=== PATIENT | female | born 1980 | race Caucasian/White ===

== ENCOUNTER 2019-03-15 17:03 | Emergency (ER) | payer BC, OTHER ==
--- NOTE | 2019-03-15 18:19 | ED ---
Head Injury - HPI Summary HPI Summary: 38-year-old female presents with head injury couple days ago. States she's been having right-sided headaches. States they're very severe. She states she almost passed out with injury. She struck the posterior aspect of her head. Denies any neck pain. She's been having blurry vision in the right eye. She states she has not been having difficulties concentrating. She was seen and told to come to the ER for further evaluation. - History Of Current Complaint Chief Complaint: EDHeadInjury Stated Complaint: HEAD INJURY PER PT Time Seen by Provider: 03/15/19 17:21 Pain Intensity: 4 - Allergies/Home Medications Allergies/Adverse Reactions: Allergies Allergy/AdvReac Type Severity Reaction Status Date / Time Adhesive Tape Allergy Unknown Verified 03/15/19 17:15 Reaction Details glucosamine Allergy Rash Verified 03/15/19 17:16 beer Allergy Anaphylatic Uncoded 03/15/19 17:16 Shock Home Medications: Home Medications Ibuprofen 600 mg PO Q6HR PRN 03/15/19 [History Confirmed 03/15/19] PMH/Surg Hx/FS Hx/Imm Hx Endocrine/Hematology History: Denies: Hx Diabetes, Hx Systemic Lupus Erythematosus Cardiovascular History: Denies: Hx Congestive Heart Failure, Hx Hypertension, Hx Pacemaker/ICD History: Denies: Hx Dialysis, Hx Renal Disease Musculoskeletal History: Denies: Hx Rheumatoid Arthritis Sensory History: Denies: Hx Hearing Aid Psychiatric History: Denies: Hx Panic Disorder - Cancer History Hx Chemotherapy: No - Surgical History Surgery Procedure, Year, and Place: cholecystectomy,appendectomy, LEEP procedure ,bunionectomy bilateral feet with screw in both big toes Infectious Disease History: No Infectious Disease History: Denies: Traveled Outside the [place] in Last 30 Days - Family History Known Family History: Positive: Non-Contributory - Social History Alcohol Use: Occasionally Substance Use Type: Reports: None Smoking Status (MU): Never Smoked Tobacco Review of Systems Negative: Fever Positive: Blurred Vision Negative: Chest Pain Negative: Shortness Of Breath Positive: Headache All Other Systems Reviewed And Are Negative: Yes Physical Exam Triage Information Reviewed: Yes Vital Signs On Initial Exam: Initial Vitals Temp Pulse Resp BP Pulse Ox 98.1 F 72 16 134/106 100 03/15/19 17:08 03/15/19 17:08 03/15/19 17:08 03/15/19 17:08 03/15/19 17:08 Vital Signs Reviewed: Yes Appearance: Positive: Well-Appearing Skin: Positive: Warm, Dry Head/Face: Positive: Normal Head/Face Inspection Eyes: Positive: Normal, EOMI, MAR, Conjunctiva Clear ENT: Positive: Normal ENT inspection, Pharyngeal erythema Neck: Positive: Other: - nontender neck, full ROM neck Respiratory/Lung Sounds: Positive: Clear to Auscultation, Breath Sounds Present Cardiovascular: Positive: Normal, RRR Musculoskeletal: Positive: Normal Neurological: Positive: Sensory/Motor Intact, Alert, Oriented to Person Place, Time, CN Intact II-III, Finger to Nose Psychiatric: Positive: Normal - Go Coma Scale Best Eye Response: 4 - Spontaneous Best Motor Response: 6 - Obeys Commands Best Verbal Response: 5 - Oriented Coma Scale Total: 15 Procedures - Sedation Patient Received Moderate/Deep Sedation with Procedure: No Diagnostics - Vital Signs Vital Signs Temp Pulse Resp BP Pulse Ox 03/15/19 17:08 98.1 F 72 16 134/106 100 - Laboratory Lab Statement: Any lab studies that have been ordered have been reviewed, and results considered in the medical decision making process. - CT brain CT Interpretation Completed By: Radiologist Summary of CT Findings: IMPRESSION: No acute intracranial pathology. Head Injury Course/Dx Course Of Treatment: 38-year-old female presents with head injury couple days ago. States she's been having right-sided headaches. States they're very severe. She states she almost passed out with injury. She struck the posterior aspect of her head. Denies any neck pain. She's been having blurry vision in the right eye. She states she has not been having difficulties concentrating. She was seen and told to come to the ER for further evaluation. On exam abnormality with visual angel on the right. Patient visual acuity reduced on the right. Otherwise cranial nerves are intact. with abnormal neuro exam and severe headache got CT. CT brain is normal. Gave concussion precautions. told follow up with primary. Patient understands agrees the plan. - Diagnoses Differential Diagnosis/HQI/PQRI: Concussion Without LOC, Contusion, Intracranial Bleed Provider Diagnoses: Head injury Discharge ED - Sign-Out/Discharge Documenting (check all that apply): Patient Departure - Discharge Plan Condition: Good Disposition: HOME Patient Education Materials: Concussion (ED) Forms: *Work Release Referrals: Roddy Merrill MD [Primary Care Provider] - Additional Instructions: Place ice on area as needed Take Tylenol or ibuprofen for headache every 6 hours Modify activities as tolerated Follow up with primary within 5 days Return to ED if develop any new or worsening symptoms - Billing Disposition and Condition Condition: GOOD Disposition: Home
[2019-03-15 18:41] VITALS: BP 123/84
== END 2019-03-15 18:40 | disposition home or self-care (01) ==
LOC: ED 17:03
DX: S09.90XA Unspecified injury of head, initial encounter (principal); X58.XXXA Exposure to other specified factors, initial encounter; Y92.9 Unspecified place or not applicable; Z90.49 Acquired absence of other specified parts of digestive tract
CPT/HCPCS: 70450; 99282

== ENCOUNTER 2019-06-15 16:13 | Emergency (ER) | payer SELFPAY ==
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
[2019-06-15 18:07] VITALS: BP 122/77
== END 2019-06-15 18:07 | disposition home or self-care (01) ==
LOC: ED 16:13
DX: M62.838 Other muscle spasm (principal); M25.562 Pain in left knee; R51 Headache; V49.40XA Driver injured in collision with unspecified motor vehicles in traffic accident, initial encounter; Y92.410 Unspecified street and highway as the place of occurrence of the external cause; Z87.891 Personal history of nicotine dependence; Z90.49 Acquired absence of other specified parts of digestive tract; Z90.89 Acquired absence of other organs; Z88.8 Allergy status to other drugs, medicaments and biological substances
CPT/HCPCS: 70450; 99281

== ENCOUNTER 2020-01-28 16:04 | Inpatient (IN) ==
[2020-01-28] MEDS ORDERED: NS 0.9% 1000 ml BAG 1,000 ML IV ONE (16:12)
[2020-01-28] MEDS ORDERED: Famotidine IV 10 MG/ML 2 ml VIAL (20 mg) IV SLOW PU ONE (16:46)
[2020-01-28 17:33] LABS: ABS Lymphocytes 0.8 10^3/ul (1.0-4.8); ABS Monocytes 0.2 10^3/ul (0-0.8); ABS Neutrophils 13.8 10^3/ul (1.5-7.7); Hematocrit 38 % (35-47); Hemoglobin 13.1 g/dL (12.0-16.0); Lymphocyte % 5.6 %; Mean Corpuscular HGB Conc 35 g/dL (31-36); Mean Corpuscular Hemoglobin 30 pg (27-31); Mean Corpuscular Volume 86 fL (80-97); Mean Platelet Volume 7.6 fL (7.4-10.4); Platelet Count 264 10^3/uL (150-450); Red Blood Count 4.46 10^6 /uL (3.70-4.87); Red Cell Distribution Width 13 % (10-15); White Blood Count 14.9 10^3/uL (3.5-10.8)
[2020-01-28] MEDS ORDERED: Fluticasone NASAL SPRAY 50MCG 16 gm SPRAY BTL INTRANASAL PRN (17:39)
[2020-01-28 17:46] LABS: Albumin 4.4 g/dL (3.2-5.2); Albumin/Globulin Ratio 2.1 (1-3); BUN/Creatinine Ratio 11.2 (8-20); Calcium 8.9 mg/dL (8.6-10.3); EGFR African American 85.4 (>60); EGFR Non-African American 70.6 (>60); Globulin 2.1 g/dL (2-4); Potassium 2.9 mmol/L (3.5-5.0); Total Bilirubin 0.5 mg/dL (0.2-1.0); Total Protein 6.5 g/dL (6.4-8.9)
[2020-01-28] MEDS ORDERED: methylPREDNISolone SOD 40 mg/ml 1 ml VIAL IV SCH (18:00)
[2020-01-28] MEDS: KCL 10 MEQ/50 ML IVPREMIX 10 MEQ/50 ML BAG IV SCH ×2 (21:08→22:19)
[2020-01-28] MEDS: Heparin 5000 UNITS/ML 1 mL VIAL SUBCUT SCH (21:17)
[2020-01-28] MEDS: Famotidine IV 10 MG/ML 2 ml VIAL (20 mg) IV SLOW PU SCH (21:17)
[2020-01-28] MEDS ORDERED: methylPREDNISolone SOD 40 mg/ml 1 ml VIAL IV ONE (21:28)
[2020-01-29 01:30] LABS: Calcium 9.3 mg/dL (8.6-10.3); Potassium 4.8 mmol/L (3.5-5.0)
[2020-01-29 01:36] LABS: BUN/Creatinine Ratio 12.3 (8-20); EGFR African American 107.4 (>60); EGFR Non-African American 88.8 (>60)
[2020-01-29] MEDS ORDERED: methylPREDNISolone SOD 40 mg/ml 1 ml VIAL IV SCH (03:00)
[2020-01-29] MEDS: Heparin 5000 UNITS/ML 1 mL VIAL SUBCUT SCH (06:48)
[2020-01-29] MEDS: Famotidine IV 10 MG/ML 2 ml VIAL (20 mg) IV SLOW PU SCH (08:57)
[2020-01-29 09:01] VITALS: BP 130/79
== END 2020-01-29 10:00 | disposition home or self-care (01) | DRG 811 ==
LOC: ED 16:04 → ICU 17:29
PROVIDERS: ADMIT Internal Medicine; ATTEND Internal Medicine

== ENCOUNTER 2020-01-29 16:30 | Inpatient (IN) ==
[2020-01-29] MEDS ORDERED: Famotidine IV 10 MG/ML 2 ml VIAL (20 mg) ONE (16:36)
[2020-01-29] MEDS ORDERED: diPHENhydraMINE IV 50 MG/ML 1 ml VIAL (BENADRYL) IV ONE (16:39)
[2020-01-29] MEDS ORDERED: Famotidine IV 10 MG/ML 2 ml VIAL (20 mg) IV SLOW PU ONE (16:39)
[2020-01-29] MEDS ORDERED: methylPREDNISolone SOD 40 mg/ml 1 ml VIAL IV ONE (16:42)
[2020-01-29] MEDS ORDERED: NS 0.9% 1000 ml BAG 2,000 ML IV ONE (16:42)
[2020-01-29 17:13] LABS: Hematocrit 41 % (35-47); Hemoglobin 13.9 g/dL (12.0-16.0); Mean Corpuscular HGB Conc 34 g/dL (31-36); Mean Corpuscular Hemoglobin 29 pg (27-31); Mean Corpuscular Volume 85 fL (80-97); Mean Platelet Volume 8.1 fL (7.4-10.4); Platelet Count 296 10^3/uL (150-450); Red Blood Count 4.74 10^6 /uL (3.70-4.87); Red Cell Distribution Width 14 % (10-15); White Blood Count 32.4 10^3/uL (3.5-10.8)
[2020-01-29] MEDS ORDERED: Fluticasone NASAL SPRAY 50MCG 16 gm SPRAY BTL INTRANASAL PRN (17:18)
[2020-01-29] MEDS ORDERED: Albuterol/Ipratropium NEB.SOL (2.5/0.5 MG) 3 ML NEB.SOLN INH PRN (17:21)
[2020-01-29 17:28] LABS: Albumin 4.9 g/dL (3.2-5.2); Albumin/Globulin Ratio 1.8 (1-3); BUN/Creatinine Ratio 15.7 (8-20); Calcium 10.2 mg/dL (8.6-10.3); EGFR African American 85.4 (>60); EGFR Non-African American 70.6 (>60); Globulin 2.7 g/dL (2-4); Magnesium 2.4 mg/dL (1.9-2.7); Total Bilirubin 0.6 mg/dL (0.2-1.0); Total Protein 7.6 g/dL (6.4-8.9)
[2020-01-29 17:53] LABS: ABS Basophils 0.1 10^3/ul (0-0.2); ABS Lymphocytes 2.1 10^3/ul (1.0-4.8); ABS Monocytes 1.1 10^3/ul (0-0.8); ABS Neutrophils 29.1 10^3/ul (1.5-7.7); Lymphocyte % 6.5 %
[2020-01-29 17:54] LABS: Potassium 3.7 mmol/L (3.5-5.0)
[2020-01-30] MEDS: Fluticasone NASAL SPRAY 50MCG 16 gm SPRAY BTL INTRANASAL SCH ×2 (10:26→23:02)
[2020-01-30 22:22] LABS: BUN/Creatinine Ratio 20.2 (8-20); Calcium 9.1 mg/dL (8.6-10.3); EGFR African American 91.3 (>60); EGFR Non-African American 75.5 (>60); Potassium 3.6 mmol/L (3.5-5.0)
[2020-01-30] MEDS ORDERED: Potassium Chlor 20 meq TAB.ER PO ONE (22:49)
[2020-01-31] MEDS: Fluticasone NASAL SPRAY 50MCG 16 gm SPRAY BTL INTRANASAL SCH ×2 (08:19→22:07)
[2020-01-31 10:40] LABS: ABS Eosinophils 0.1 10^3/ul (0-0.6); ABS Monocytes 0.7 10^3/ul (0-0.8); ABS Neutrophils 8.3 10^3/ul (1.5-7.7); Eosinophil % 0.6 %; Hematocrit 40 % (35-47); Hemoglobin 13.4 g/dL (12.0-16.0); Lymphocyte % 24.7 %; Mean Corpuscular HGB Conc 34 g/dL (31-36); Mean Corpuscular Hemoglobin 29 pg (27-31); Mean Corpuscular Volume 85 fL (80-97); Mean Platelet Volume 7.4 fL (7.4-10.4); Nucleated Red Blood Cells % 0.1; Platelet Count 223 10^3/uL (150-450); Red Blood Count 4.64 10^6 /uL (3.70-4.87); Red Cell Distribution Width 14 % (10-15); White Blood Count 12.1 10^3/uL (3.5-10.8)
[2020-01-31 10:51] LABS: BUN/Creatinine Ratio 18.6 (8-20); EGFR African American 88.9 (>60); EGFR Non-African American 73.5 (>60); Magnesium 2.2 mg/dL (1.9-2.7); Phosphorus 1.9 mg/dL (2.5-5.0); Potassium 3.6 mmol/L (3.5-5.0)
[2020-01-31] MEDS ORDERED: Potassium Phosphate IV 30 MMOLE in NS 0.9% 250 ml 250 ML IVPB ONE (11:38)
[2020-01-31] MEDS ORDERED: Potassium Phosphate IV 15 MMOLE in NS 0.9% 250 ml 250 ML IVPB ONE (11:42)
[2020-01-31] MEDS ORDERED: Potassium Chlor 20 meq TAB.ER PO ONE (11:42)
[2020-02-01 06:05] LABS: ABS Eosinophils 0.1 10^3/ul (0-0.6); ABS Lymphocytes 4.5 10^3/ul (1.0-4.8); ABS Monocytes 0.8 10^3/ul (0-0.8); Eosinophil % 0.9 %; Hematocrit 40 % (35-47); Hemoglobin 13.6 g/dL (12.0-16.0); Lymphocyte % 36.1 %; Mean Corpuscular HGB Conc 34 g/dL (31-36); Mean Corpuscular Hemoglobin 29 pg (27-31); Mean Corpuscular Volume 85 fL (80-97); Mean Platelet Volume 7.4 fL (7.4-10.4); Nucleated Red Blood Cells % 0.1; Platelet Count 209 10^3/uL (150-450); Red Blood Count 4.66 10^6 /uL (3.70-4.87); Red Cell Distribution Width 13 % (10-15); White Blood Count 12.5 10^3/uL (3.5-10.8)
[2020-02-01 06:16] LABS: BUN/Creatinine Ratio 21.7 (8-20); Calcium 9.3 mg/dL (8.6-10.3); EGFR African American 92.6 (>60); EGFR Non-African American 76.5 (>60); Magnesium 2.1 mg/dL (1.9-2.7); Potassium 3.4 mmol/L (3.5-5.0)
[2020-02-01] MEDS: Potassium Chlor 20 meq TAB.ER PO SCH ×2 (08:11→11:58)
[2020-02-01] MEDS: Fluticasone NASAL SPRAY 50MCG 16 gm SPRAY BTL INTRANASAL SCH (08:12)
[2020-02-01] MEDS ORDERED: methylPREDNISolone 125 mg 2 ML VIAL IV ONE (09:30)
[2020-02-01 18:20] VITALS: BP 116/83
== END 2020-02-01 18:15 | disposition home or self-care (01) ==
LOC: ED 16:30 → ICU 18:10
PROVIDERS: ADMIT Internal Medicine; ATTEND Internal Medicine